=== PATIENT | female | born 1965 | race Caucasian/White ===

== ENCOUNTER → 2017-12-19 | Outpatient (CLI) | payer BC | LOC: MC.RAD 11:31 | DX: Z12.31 Encounter for screening mammogram for malignant neoplasm of breast (principal); N63.21 Unspecified lump in the left breast, upper outer quadrant ==

== ENCOUNTER → 2017-12-24 | Outpatient (CLI) | payer BC | LOC: MC.RAD 12:45 | DX: N60.02 Solitary cyst of left breast (principal); N63.20 Unspecified lump in the left breast, unspecified quadrant; N64.59 Other signs and symptoms in breast ==

== ENCOUNTER → 2019-02-11 | Outpatient (CLI) | payer BC | LOC: MC.RAD 09:28 | DX: Z12.31 Encounter for screening mammogram for malignant neoplasm of breast (principal) ==

== ENCOUNTER → 2020-04-06 | Outpatient (CLI) | payer BC | LOC: MC.RAD 07:45 | DX: Z12.31 Encounter for screening mammogram for malignant neoplasm of breast (principal) ==